=== PATIENT | female | born 1985 | race Caucasian/White ===

== ENCOUNTER → 2019-10-25 13:45 | Outpatient (CLI) | payer SELFPAY ==
[2019-10-25 10:46] VITALS: BMI 25.2
--- NOTE | 2019-10-25 13:49 | BI_ITS ---
MAMMOGRAPHY - BILATERAL DIAGNOSTIC REASON FOR EXAM: Female, 34 years old. One-month history of right breast lump. PERTINENT HISTORY: Non-contributory. TECHNIQUE: Digital bilateral breast lizeth (3D mammographic acquisition) in the CC and MLO projections. 2-D mediolateral oblique (MLO) and craniocaudad (CC) views of both breasts were obtained. CAD: Full Field Digital Mammography with Computer Added Detection was performed. COMPARISON: None. Baseline examination. FINDINGS: Breast Composition: The breasts are extremely dense, which lowers the sensitivity of mammography. The palpable abnormality corresponds to a 1.9 cm x 2.2 cm well-defined nodule in the superior retroareolar region of the right breast. A similar-appearing well-defined nodular densities also seen in the medial aspect of the right breast measuring 1.4 cm x 1.4 cm. Correlation with ultrasound is recommended. No other significant abnormalities are identified. BI/DIAG MAMM W/CAD, BILAT IMPRESSION: 2 well-defined nodular densities are seen in the retroareolar region of the right breast as well as along the medial aspect of the right breast. Correlation with ultrasound is recommended. ASSESSMENT CATEGORY: BIRADS Category 0: Incomplete. Need additional imaging evaluation. A letter regarding these results will be sent to the patient by the facility within 30 days. Approximately 10% of breast cancers are not detected by mammography. A normal mammogram should not delay biopsy of a clinically suspicious abnormality. Electronically Signed: Noel Carlson, at 15:06 EST , Service support ,
--- NOTE | 2019-10-25 13:49 | US_ITS ---
STUDY: ULTRASOUND BREAST - RIGHT REASON FOR EXAM: Female, 34 years old. Palpable lump in the right breast. TECHNIQUE: Axial and longitudinal images of the RIGHT breast were performed with a high resolution ultrasound transducer. # OF IMAGES: 36 COMPARISON: Comparison is made with prior mammogram done earlier in the day. FINDINGS: RIGHT Breast: The palpable abnormality corresponds to a 1.8 cm x 2.2 cm x 1.4 cm cyst lateral to the retroareolar region. A 5 mm x 4 mm x 4 m cyst is also seen at that site. There is also evidence of a 1 cm x 1.6 cm x 0.5 cm cyst located posterior and slightly medial to the retroareolar region. US/Breast Complete Unilateral IMPRESSION: The palpable abnormality corresponds to a dominant cyst. ASSESSMENT CATEGORY: BIRADS Category 2: Benign. A letter regarding these results will be sent to the patient by the facility within 30 days. Electronically Signed: Noel Carlson, at 15:26 EST , Service support ,
== END ==
PROVIDERS: Referring Provider Obstetrics & Gynecology; Visit Provider Obstetrics & Gynecology
DX: N63.10 Unspecified lump in the right breast, unspecified quadrant (principal)
CPT/HCPCS: 76641; 77062; 77066; G0279